=== PATIENT | female | born 1950 | race Caucasian/White ===

== ENCOUNTER 2023-02-08 10:00 | Day surgery (SDC) | payer MEDICARE, BC ==
[~2023-02-08 10:00] MED LIST: Lactated Ringers 1,000 ML IV SCH
[2023-02-08] MEDS ORDERED: fentaNYL 100 MCG/2 ML SDV ONE (12:20)
[2023-02-08] MEDS ORDERED: Propofol 200 MG/20 ML SDV ONE (12:20)
== END 2023-02-08 13:51 | disposition home or self-care (01) ==
LOC: VM.SDS 10:00
PROVIDERS: ATTEND Family Medicine
DX: K21.9 Gastro-esophageal reflux disease without esophagitis (principal); K31.89 Other diseases of stomach and duodenum; K29.70 Gastritis, unspecified, without bleeding; K31.7 Polyp of stomach and duodenum; I10 Essential (primary) hypertension; E78.00 Pure hypercholesterolemia, unspecified; E11.9 Type 2 diabetes mellitus without complications; M81.0 Age-related osteoporosis without current pathological fracture; G47.00 Insomnia, unspecified; E66.9 Obesity, unspecified; Z98.890 Other specified postprocedural states; Z87.19 Personal history of other diseases of the digestive system; Z79.84 Long term (current) use of oral hypoglycemic drugs; Z79.82 Long term (current) use of aspirin; Z79.899 Other long term (current) drug therapy
CPT/HCPCS: 00731; 82947; 88305; J2704; J3010; J7120